=== PATIENT | female | born 1990 | race Caucasian/White ===

== ENCOUNTER 2020-01-25 23:24 | Inpatient (IN) | payer MEDICAID ==
[~2020-01-25] VITALS: Ht 154.9 cm; Wt 85.3 kg
[2020-01-26] MEDS ORDERED: LACTATED RINGERS 1,000 ML IV SCH (00:27)
[2020-01-26] MEDS ORDERED: METHYLERGONOVINE MALEATE 0.2 MG/ML IM PRN (00:30)
[2020-01-26] MEDS ORDERED: LIDOCAINE HCL 1% 20ML VIAL (Pyxis) INJ INFIL SCH (00:30)
[2020-01-26] MEDS ORDERED: BUTORPHANOL TARTRATE 2 MG/ML VIAL IV PRN ×2 (00:30→18:45)
[2020-01-26] MEDS ORDERED: NALOXONE HCL 0.4 MG/ML 1ML VIAL IM PRN (00:30)
[2020-01-26] MEDS ORDERED: CEPH-569 PO (00:44)
[2020-01-26] MEDS ORDERED: PREN1TAB78 PO (00:44)
[2020-01-26 01:05] LABS: CLARITY URINE CLOUDY (CLEAR); COLOR URINE YELLOW (YELLOW); KETONES URINE 4+ (NEGATIVE); LEUKOCYTE ESTERASE URINE 1+ (NEGATIVE); NITRITE URINE NEGATIVE (NEGATIVE); OCCULT BLOOD URINE 1+ (NEGATIVE); PH URINE 6.5 (4.5-8.0); PROTEIN URINE TRACE (NEGATIVE); SPECIFIC GRAVITY URINE 1.028 (1.005-1.030)
[2020-01-26 01:07] LABS: BASOPHILS % 0.5 % (0.0-2.0); EOSINOPHILS % 1.1 % (0.0-5.0); HEMATOCRIT. 38.1 % (36.0-48.0); HEMOGLOBIN. 12.5 g/dL (12.0-16.0); LYMPHOCYTES % 19.8 % (20.0-50.0); MEAN CORPUSCULAR HEMOGLOBIN 27.7 pg (28.0-32.0); MEAN CORPUSCULAR VOLUME 84.1 fL (81.0-99.0); MEAN PLATELET VOLUME 10.5 fl (7.4-10.4); NEUTROPHILS % 73.6 % (40.0-76.0); PLATELET 215 x1000/uL (130-400); RED BLOOD CELL COUNT 4.53 mill/uL (4.2-5.4); RED CELL DISTRIBUTION WIDTH 21.5 % (11.6-14.6)
[2020-01-26 01:23] LABS: INR 0.9
[2020-01-26 01:31] LABS: *AMPHETAMINES SCREEN URINE NEGATIVE (NEGATIVE); *BARBITURATES SCREEN URINE NEGATIVE (NEGATIVE); *BENZODIAZEPINES SCREEN URINE NEGATIVE (NEGATIVE); *COCAINE SCREEN URINE NEGATIVE (NEGATIVE); CANNABINOID URINE SCREEN NEGATIVE (NEGATIVE); METHADONE URINE SCREEN NEGATIVE (NEGATIVE); OPIATES URINE SCREEN NEGATIVE (NEGATIVE); PHENCYCLIDINE URINE SCREEN NEGATIVE (NEGATIVE)
[2020-01-26] MEDS: DEXT 5%/LR + PITOCIN 20UNITS/L 1,000 ML IV SCH ×2 (01:32→20:25)
[2020-01-26 02:12] LABS: HEPATITIS B SURFACE ANTIGEN NEGATIVE
[2020-01-26] MEDS: LACTATED RINGERS 1,000 ML IV SCH ×2 (07:07→10:07)
[2020-01-26] MEDS ORDERED: ROPIVACAINE HCL/PF EPIDURAL 200 ML EPI ONE (08:45)
[2020-01-26] MEDS ORDERED: ROPIVACAINE HCL/PF EPIDURAL 200 ML EPI SCH (09:15)
[2020-01-26] MEDS ORDERED: LIDOCAINE HCL 2%/EPINEPHRINE 1:100,000 20 ML VIAL INFIL ONE (09:40)
[2020-01-26] MEDS ORDERED: CARBOPROST TROMETHAMINE 250 MCG/ML AMPUL IM ONE (09:41)
[2020-01-26] MEDS ORDERED: FENTANYL CITRATE/PF 50MCG/ML 2ML VIAL ONE (15:55)
[2020-01-26] MEDS ORDERED: MORPHINE SULFATE/PF 1MG/ML 10ML AMP ONE (17:40)
[2020-01-26] MEDS ORDERED: OXYTOCIN 10 UNITS/ML 1ML ONE (17:50)
[2020-01-26] MEDS ORDERED: CEFAZOLIN SODIUM 1000MG/VIAL ONE (17:50)
[2020-01-26] MEDS ORDERED: ONDANSETRON HCL 4MG/2ML INJ ONE (17:52)
[2020-01-26] MEDS ORDERED: METOCLOPRAMIDE HCL 10MG/2ML VIAL ONE (18:11)
[2020-01-26] MEDS ORDERED: DIPHENHYDRAMINE 50MG/ML VIAL ONE (18:14)
[2020-01-26] MEDS ORDERED: KETOROLAC 60MG/2ML VIAL IM ONE (18:14)
[2020-01-26] MEDS ORDERED: DEXT 5%/LR + PITOCIN 20UNITS/L 1,000 ML IV SCH (18:34)
[2020-01-26] MEDS ORDERED: RHO(D) IMMUNE GLOBULIN 300 MCG/SYR IM PRN (18:45)
[2020-01-26] MEDS ORDERED: IBUPROFEN 800MG TABLET PO PRN (18:45)
[2020-01-26] MEDS ORDERED: BISACODYL 10MG SUPP PR PRN (18:45)
[2020-01-26] MEDS ORDERED: NALOXONE HCL 0.4 MG/ML 1ML VIAL IV PRN (18:45)
[2020-01-26] MEDS ORDERED: MEPERIDINE HCL/PF 25MG/ML CPJ IV PRN (18:45)
[2020-01-26] MEDS ORDERED: KETOROLAC 30MG/ML VIAL IV PRN (18:45)
[2020-01-26] MEDS ORDERED: IBUPROFEN 400MG TABLET PO PRN (18:45)
[2020-01-26] MEDS ORDERED: DIPHENHYDRAMINE 50MG/ML VIAL IV PRN (18:45)
[2020-01-26] MEDS: KETOROLAC 30MG/ML VIAL IV SCH (21:05)
[2020-01-26 21:25] VITALS: BP 124/69
[2020-01-27] MEDS: KETOROLAC 30MG/ML VIAL IV SCH ×2 (03:12→09:32)
[2020-01-27 04:00] VITALS: BP 107/59
[2020-01-27 07:39] LABS: BASOPHILS % 0.3 % (0.0-2.0); EOSINOPHILS % 0.1 % (0.0-5.0); HEMATOCRIT. 35.5 % (36.0-48.0); HEMOGLOBIN. 11.5 g/dL (12.0-16.0); LYMPHOCYTES % 8.4 % (20.0-50.0); MEAN CORPUSCULAR HEMOGLOBIN 27.6 pg (28.0-32.0); MEAN CORPUSCULAR VOLUME 84.9 fL (81.0-99.0); MEAN PLATELET VOLUME 10.5 fl (7.4-10.4); MONOCYTES % 4.5 % (2.0-8.0); NEUTROPHILS % 86.7 % (40.0-76.0); PLATELET 208 x1000/uL (130-400); RED BLOOD CELL COUNT 4.18 mill/uL (4.2-5.4)
[2020-01-27 08:00] VITALS: BP 117/69
[2020-01-27 12:40] LABS: PLATELET ESTIMATE NORMAL
[2020-01-27 16:00] VITALS: BP 111/68
[2020-01-27 21:05] VITALS: BP 108/67
[2020-01-28] MEDS ORDERED: IBUP-2030 MT (03:07)
[2020-01-28 04:50] VITALS: BP 134/77
[2020-01-28 08:00] VITALS: BP 135/66
== END 2020-01-28 11:30 | disposition home or self-care (01) | DRG 540 ==
LOC: 8 EST LDRP 23:24 → INTOOBSV 23:24 → OBSVTOIN 23:24 → 8EST 01-26 21:25
PROVIDERS: ADMIT Obstetrics & Gynecology; ATTEND Obstetrics & Gynecology
PROC: 10D00Z1 Extraction of Products of Conception, Low, Open Approach (ICD-10-PCS; principal; 2020-01-26)
DX: O41.03X0 Oligohydramnios, third trimester, not applicable or unspecified (principal); O10.92 Unspecified pre-existing hypertension complicating childbirth; O61.9 Failed induction of labor, unspecified; O69.81X0 Labor and delivery complicated by cord around neck, without compression, not applicable or unspecified; O11.4 Pre-existing hypertension with pre-eclampsia, complicating childbirth; O13.4 Gestational [pregnancy-induced] hypertension without significant proteinuria, complicating childbirth; Z37.0 Single live birth; Z3A.39 39 weeks gestation of pregnancy; Z82.49 Family history of ischemic heart disease and other diseases of the circulatory system; Z83.3 Family history of diabetes mellitus
CPT/HCPCS: 36415; 80305; 81003; 85025; 86592; 86703; 86762; 86850; 86900; 87340; 88307; 99281; G0378; J0690; J1200; J1885; J2175; J2274; J2405; J2590; J2765; J2795; J3010; J3490; J7120

== ENCOUNTER 2024-03-10 07:23 | Emergency (ER) | payer MEDICAID, OTHER ==
[~2024-03-10] VITALS: Ht 154.9 cm; Wt 88.0 kg
[~2024-03-10 07:23] MED LIST: IBUP-2030 MT
[2024-03-10 07:28] VITALS: O2SAT 97
[2024-03-10 08:16] LABS: BASOPHILS % 0.6 % (0.0-2.0); EOSINOPHILS % 1.5 % (0.0-5.0); HEMATOCRIT. 39.3 % (36.0-48.0); HEMOGLOBIN. 12.8 g/dL (12.0-16.0); LYMPHOCYTES % 20.8 % (20.0-50.0); MEAN CORPUSCULAR HGB CONC 32.5 g/dL (31.0-37.0); MEAN CORPUSCULAR VOLUME 86.1 fL (81.0-99.0); MONOCYTES % 7.2 % (2.0-8.0); NEUTROPHILS % 69.9 % (40.0-76.0); PLATELET 238 x1000/uL (130-400); RED BLOOD CELL COUNT 4.56 mill/uL (4.2-5.4); RED CELL DISTRIBUTION WIDTH 15.4 % (11.6-14.6); WHITE BLOOD COUNT 6.5 x1000/uL (4.5-11.0)
[2024-03-10 08:27] LABS: CALCIUM 9.4 mg/dL (8.7-10.4); CARBON DIOXIDE 24 mEq/L (21-32)
[2024-03-10 08:28] LABS: CHLORIDE 109 mEq/L (98-107); POTASSIUM 4.3 mEq/L (3.5-5.1); SODIUM 139 mEq/L (136-145)
[2024-03-10 08:32] LABS: CREATININE 0.7 mg/dL (0.6-1.0); GLUCOSE 101 mg/dL (70-105); UREA NITROGEN BLOOD 6 mg/dL (9-23)
[2024-03-10 08:34] LABS: ALANINE AMINOTRANSFERASE 24 IU/L (10-49); ALBUMIN 4.8 g/dL (3.2-4.8); ASPARTATE AMINOTRANSFERASE 19 IU/L (<34)
[2024-03-10 08:34] LABS: CLARITY URINE CLEAR (CLEAR); COLOR URINE YELLOW (YELLOW); PH URINE 5.5 (4.5-8.0); PROTEIN URINE NEGATIVE (NEGATIVE); SPECIFIC GRAVITY URINE 1.009 (1.005-1.030)
[2024-03-10 08:35] LABS: BILIRUBIN TOTAL 0.3 mg/dL (0.1-1.0); PROTEIN TOTAL 7.5 g/dL (6.0-8.3); TROPONIN I HIGH SENSITIVITY < 4 ng/L (3.0-34)
[2024-03-10 08:35] LABS: GLUCOSE URINE NEGATIVE (NEGATIVE); KETONES URINE TRACE (NEGATIVE); LEUKOCYTE ESTERASE URINE NEGATIVE (NEGATIVE); NITRITE URINE NEGATIVE (NEGATIVE); OCCULT BLOOD URINE TRACE (NEGATIVE); UROBILINOGEN URINE 0.2 E.U./dL (0.2-1.0)
[2024-03-10 08:39] LABS: HCG SCREEN NEGATIVE; INR 1.1; PROTHROMBIN TIME 11.8 sec (9.6-11.0)
[2024-03-10] MEDS: SODIUM CHLORIDE 0.9% 1,000 ML IV ONE (08:40)
[2024-03-10] MEDS: ACETAMINOPHEN 325MG TABLET PO ONE (08:41)
[2024-03-10] MEDS: METOCLOPRAMIDE HCL 10MG/2ML VIAL IV ONE (08:41)
[2024-03-10 08:45] LABS: MUCUS URINE 2+ /lpf (< = 2+); SQUAMOUS EPITHELIAL CELL URINE 1+ /lpf (RARE/1+)
[2024-03-10 08:46] LABS: RBC URINE NONE SEEN /hpf (0-2); WBC URINE 0-2 /hpf (0-2)
[2024-03-10 08:47] LABS: BACTERIA URINE TRACE
[2024-03-10 10:27] VITALS: BP 135/92; PULSE 80; RESP 18; TEMP 98.2
[2024-03-10] MEDS ORDERED: MECL-299 MT (10:52)
== END 2024-03-10 10:34 | disposition home or self-care (01) ==
LOC: ER 07:23
DX: R51.9 Headache, unspecified (principal); I49.9 Cardiac arrhythmia, unspecified
CPT/HCPCS: 80053; 81003; 84703; 83690; 85025; 85610; 84484; 36415; 71045; 93005; 96361; 96374; 99285; J2765; J7030; Z7610